=== PATIENT | male | born 1980 | race Caucasian/White ===

== ENCOUNTER 2023-05-20 11:11 | Outpatient (CLI) | payer BC, SELFPAY | END 2023-05-20 11:12 | disposition home or self-care (01) | PROVIDERS: PCP Family Medicine; Visit Provider Family Medicine | DX: E78.5 Hyperlipidemia, unspecified (principal); F41.9 Anxiety disorder, unspecified; Z13.0 Encounter for screening for diseases of the blood and blood-forming organs and certain disorders involving the immune mechanism; Z13.29 Encounter for screening for other suspected endocrine disorder | CPT/HCPCS: 80061; 84443 ==

== ENCOUNTER 2023-07-15 19:25 | Outpatient (CLI) | payer BC, SELFPAY ==
--- NOTE | 2024-02-24 10:12 | W.PM.SLEEP ---
Sleep Study Details Details Interpreting Provider: Dhruv Date of Sleep Study: 07/15/23 Sleep Study Details: STUDY TYPE:? Home unattended ? BMI:? 36.5 ORDERING PROVIDER:? Rolly INDICATION:? Concern about sleep apnea ? SLEEP SUMMARY:? Monitor time 465.3 minutes RESPIRATORY SUMMARY:? AHI 62.6, supine 73.5, right lateral 3.4 Low oxygen 59 42.1% of study oxygen less than 90% Snoring 20.7% PERIODIC LIMB MOVEMENTS OF SLEEP:? Not recorded CARDIAC:? Range 48-82, mean 57.4 beats per minute IMPRESSION:? Severe obstructive sleep apnea with apparent supine position dependency RECOMMENDATION: Positional therapy may be an option but I suspect he was awake part of the time when he was on his side. Treatment options otherwise would include CPAP possibly bilevel weight loss and/or airway expansion surgery.
== END 2023-07-15 19:26 | disposition home or self-care (01) ==
LOC: SLEEP 19:26
PROVIDERS: PCP Family Medicine; Visit Provider Family Medicine
DX: G47.33 Obstructive sleep apnea (adult) (pediatric) (principal)
CPT/HCPCS: 95806

== ENCOUNTER 2025-07-05 12:48 | Outpatient (CLI) | payer BC, SELFPAY | END 2025-07-05 12:49 | disposition home or self-care (01) | LOC: LKVREF 12:49 | PROVIDERS: PCP Family Medicine; Visit Provider Nurse Practitioner Family | DX: M79.675 Pain in left toe(s) (principal); M10.9 Gout, unspecified | CPT/HCPCS: 84550 ==